=== PATIENT | female | born 1980 | race Caucasian/White ===

== ENCOUNTER 2020-01-09 13:54 | Emergency (ER) | payer SELFPAY ==
--- NOTE | 2020-01-09 14:08 | ER Document Report ---
ED Medical Screen (RME) - General Chief Complaint: Headache Stated Complaint: HEADACHE,ABDOMINAL PAIN Time Seen by Provider: 01/09/20 14:05 Mode of Arrival: Ambulatory Information source: Patient Notes: 39-year-old female presented to ED for complaint of abdominal pain pinkish discharge she is a little bit late on her menstrual cycle. She states she also has headache nausea no vomiting back pain body aches. She states all of her children just got over the flu but she did not have the flu. She states she was treated for the flu because her children were all treated with Tamiflu. Last menstrual cycle was December 09, 2019. She does smoke a third a pack a day rarely drinks no drugs. I have greeted and performed a rapid initial assessment of this patient. A comprehensive ED assessment and evaluation of the patient, analysis of test results and completion of medical decision making process will be conducted by an additional ED providers. Physical Exam - Vital signs Vitals: Temp Pulse Resp BP Pulse Ox 98.1 F 91 18 107/62 100 01/09/20 13:58 01/09/20 13:58 01/09/20 13:58 01/09/20 13:58 01/09/20 13:58 Course - Vital Signs Vital signs: Temp Pulse Resp BP Pulse Ox 98.1 F 91 18 107/62 100 01/09/20 13:58 01/09/20 13:58 01/09/20 13:58 01/09/20 13:58 01/09/20 13:58
[2020-01-09] MEDS ORDERED: KETOROLAC TROMETHAMINE INJ/PF 30 MG/1 ML SDV IV ONE (15:12)
[2020-01-09] MEDS ORDERED: DIPHENHYDRAMINE HCL 50 MG/ML VIAL IV ONE (15:12)
[2020-01-09] MEDS ORDERED: CEFTRIAXONE INJ 250 MG VIAL IM ONE (15:12)
[2020-01-09] MEDS ORDERED: LIDOCAINE 1% INJ-PF (10 MG/ML) 30 ML SDV NEB ONE (15:12)
[2020-01-09] MEDS ORDERED: AZITHROMYCIN 250 MG TABLET PO ONE (15:12)
[2020-01-09] MEDS ORDERED: PROCHLORPERAZINE EDISYLATE INJ 10 MG/2 ML VIAL IV ONE (15:12)
[2020-01-09] MEDS ORDERED: NORMAL SALINE 1000 ML 1,000 ML IV ONE (15:12)
[2020-01-09 15:29] LABS: ABSOLUTE MONOCYTES (AUTO) 0.4 10^3/uL (0.1-1.4); ABSOLUTE NEUT (AUTO) 2.3 10^3/uL (1.7-8.2); BASOPHILS % (AUTO) 0.4 % (0-2); EOSINOPHILS % (AUTO) 0.4 % (0-6); HEMOGLOBIN 13.6 g/dL (12.0-15.5); LYMPHOCYTES % (AUTO) 27.4 % (13-45); MEAN CORPUSCULAR HEMOGLOBIN 30.6 pg (27.0-33.4); MEAN CORPUSCULAR VOLUME 90 fl (80-97); MONOCYTES % (AUTO) 11.9 % (3-13); PLATELET COUNT 159 10^3/uL (150-450); RED BLOOD COUNT 4.45 10^6/uL (3.72-5.28); RED CELL DISTRIBUTION WIDTH 13.7 % (11.5-14.0); SEGMENTED NEUTROPHILS % (AUTO) 59.9 % (42-78); TOTAL CELLS COUNTED % (AUTO) 100 %; WHITE BLOOD COUNT 3.8 10^3/uL (4.0-10.5)
--- NOTE | 2020-01-09 15:30 | ER Document Report ---
ED General - General Chief Complaint: Headache Stated Complaint: HEADACHE,ABDOMINAL PAIN Time Seen by Provider: 01/09/20 14:05 Primary Care Provider: [facility] [Provider Group] - Follow up as needed Mode of Arrival: Ambulatory - [facility] Notes: Patient is a 39-year-old female with history of migraines presents for multiple concerns. The first is that she is having a headache to her posterior occiput area bilaterally for the past week that is been fairly constant. Patient states that she has had some neck pains and movement does make her pain worse. Patient states the pain will occasionally up to the top of her scalp. Patient states that she does have occasional associated light sensitivity, nausea/vomiting. This is not the worst VILLALOBOS of life and did not start as a thunderclap. Patient also endorses right lower back pain which she has had before. Pain does not radiate into her lower extremities. Patient is also complaining of left lower pelvic pain that is been present for the past several days. She did notice some pink discharge this morning. She has not noticed any other vaginal odor. Last menstrual cycle was 1 month ago. Patient states that she is little bit late this time around. She is otherwise urinating normally and having normal bowel movements. Denies any fever, head injury, changes in vision/speech/mentation/hearing, URI, sore throat, chest pain, palpitations, syncope, cough, shortness of breath, wheeze, dyspnea, diarrhea, urinary retention, dysuria, hematuria, loss of control of bowel or bladder, numbness/tingling, saddle anesthesia, muscle paralysis/weakness, or rash. - Related Data Allergies/Adverse Reactions: No Known Allergies Allergy (Verified 01/09/20 15:17) Past Medical History - General Information source: Patient - Social History Smoking Status: Current Every Day Smoker Family History: Reviewed & Not Pertinent Review of Systems - Review of Systems -: Yes All other systems reviewed and negative Physical Exam - Vital signs Vitals: Temp Pulse Resp BP Pulse Ox 98.1 F 91 18 107/62 100 01/09/20 13:58 01/09/20 13:58 01/09/20 13:58 01/09/20 13:58 01/09/20 13:58 - Notes Notes: PHYSICAL EXAMINATION: GENERAL: Well-appearing, well-nourished and in no acute distress. A&Ox4. Answers questions appropriately. HEAD: Atraumatic, normocephalic. + reproducible tenderness b/l occipital nerve bundles. EYES: Pupils equal round and reactive to light, extraocular movements intact, sclera anicteric, conjunctiva are normal. No nystagmus. ENT: Nares patent and without discharge. oropharynx clear without exudates. No tonsilar hypertrophy or erythema. Moist mucous membranes. No sinus tenderness. NECK: Normal range of motion, supple without lymphadenopathy. No rigidity/meningismus. No midline tenderness. + reproducible tenderness to the c-paraspinal mm b/l. LUNGS: Breath sounds clear to auscultation bilaterally and equal. No wheezes rales or rhonchi. HEART: Regular rate and rhythm without murmurs, rubs, gallops. ABDOMEN: Soft, nondistended abdomen. No guarding, no rebound. Normal bowel sounds present. No CVA tenderness bilaterally. + reproducible tenderness Lt lower pelvic to palp. no tenderness at [place]. Eng neg. Female : No inguinal adenopathy. External genitalia without erythema, lesi ons, or masses. Vaginal mucosa pink. Cervix parous, pink, and with scant bloody discharge. Uterus is smooth. No adnexal tenderness. No CMT. Witnessed by LYUBOV Brown. Musculoskeletal: Ext b/l: FROM to passive/active. Strength 5+/5. No deficits noted. No bony tenderness of extremities. Back: FROM to passive/active. Strength 5+/5. No vertebral point tenderness, stepoffs, or deformities. No other bony tenderness, erythema, swelling, or ecchymosis. SLR negative b/l. + mild tenderness to the L-paraspinal mm Rt side. Mild spasming. No SI jt tenderness. No foot drop Extremities: No cyanosis, clubbing, or edema b/l. Peripheral pulses 2+. Capillary refill less than 2 seconds. NEUROLOGICAL: NIH 0. GCS 15. Cranial nerves grossly intact. Normal speech, normal gait. Normal sensory, motor exams. Reflexes 2+ b/l. ANTWAN's negative. Pronator drift negative. Heel/marshall, finger/nose wnl. Romberg neg. PSYCH: Normal mood, normal affect. SKIN: Warm, Dry, normal turgor, no rashes or lesions noted. Course - Re-evaluation Re-evalutation: 01/09/20 Patient is an afebrile, well-hydrated, 39-year-old female who presents to the ED with BV, left pelvic pain unspecified, VILLALOBOS (suspect tension-occipital neuritis), and low back pain (suspect benign). Vitals are acceptable without any significant tachycardia, tachypnea, or hypoxia. PE is otherwise unremarkable. Labs unremarkable. See wet mount results. Chlam/gonorrhea tests are pending. Patient given zithromax/rocephin. Patient is nontoxic-appearing is tolerating p.o. without any difficulties. Transvaginal ultrasound was also unremarkable for any acute pathology. No other labs or imaging warranted at this time based on H&P. VILLALOBOS resolved with meds. Low suspicion/risk for cauda equina, disc herniation causing severe spinal stenosis, spinal abscess, acute intracranial pathology, acute appendicitis, bowel obstruction, acute cholecystitis, acute ch olangitis, perforated diverticulitis, incarcerated hernia, pancreatitis, perforated ulcer, peritonitis, sepsis, pelvic inflammatory disease, ectopic , tubo-ovarian abscess, ovarian torsion, or other systemic emergent condition at this time. Patient is aware that her condition can change from initial presentation and she needs to monitor symptoms closely and seek medical attention if any acute changes. I will send her home with prescription for robaxin, flagyl, motrin. Conservative measures otherwise for symptoms. Recheck with your PCM/OBGYN in 3-5 days. Return to the ED with any worsening/concerning symptoms otherwise as reviewed in discharge. Patient is in agreement. - Vital Signs Vital signs: Temp Pulse Resp BP Pulse Ox 98.1 F 91 18 107/62 100 01/09/20 13:58 01/09/20 13:58 01/09/20 13:58 01/09/20 13:58 01/09/20 13:58 - Laboratory Result Diagrams: 01/09/20 15:02 01/09/20 15:02 Laboratory results interpreted by me: 01/09/20 01/09/20 01/09/20 15:02 15:02 15:49 WBC 3.8 L AST 58 H ALT 62 H Urine Protein 30 H Urine Blood LARGE H Urine Ascorbic Acid 40 H Procedures - Pelvic Exam Pelvic exam Cultures obtained: Yes Wet prep obtained: Yes Bimanual exam performed: Yes - negative Witnessed by: LYUBOV Brown Discharge - Discharge Clinical Impression: Pelvic pain, Bacterial vaginosis Headache Qualifiers: Headache type: tension-type Headache chronicity pattern: acute headache Int ractability: not intractable Qualified Code(s): G44.209 - Tension-type headache, unspecified, not intractable Low back pain Qualifiers: Chronicity: acute Back pain laterality: right Sciatica presence: without sciatica Qualified Code(s): M54.5 - Low back pain Condition: Stable Disposition: HOME, SELF-CARE Instructions: Headache ([facility]), Muscle Relaxers ([facility]), Pelvic Pain ([facility]) Additional Instructions: Maintain fluid intake Proper hygienic technique Keep the skin clean Ice, heat, massage, stretches Tylenol/ibuprofen as needed Check in with the health department this week for further testing if warranted Your chlamydia/gonorrhea tests are pending and you will be notified if positive results; you may call in 1 day for the results as well F/u with your PCM/OBGYN in 3-5 days for a recheck Return to the ED with any development of VILLALOBOS/fever, trouble with vision, eye redness, worsening pain, urethral discharge, urinary retention, blood in the urine, flank pain, abdominal pain, n/v, Chest Pain, shortness of breath, joint pains, trouble breathing, or any other worsening/concerning symptoms as needed otherwise. Prescriptions: Metronidazole [Flagyl] 500 mg PO BID #14 tablet Ibuprofen [Motrin 800 mg Tablet] 800 mg PO Q8H PRN #15 tab PRN Reason: Methocarbamol [Robaxin 750 mg Tablet] 750 mg PO TID PRN #10 tablet PRN Reason: Forms: Smoking Cessation Education Referrals: [facility] [Provider Group] - Follow up as needed
[2020-01-09 15:46] LABS: ALBUMIN 3.7 g/dL (3.5-5.0); ALKALINE PHOSPHATASE 68 U/L (38-126); ANION GAP 5 (5-19); ASPARTATE AMINO TRANSFERASE 58 U/L (14-36); BILIRUBIN,DIRECT 0.2 mg/dL (0.0-0.4); BILIRUBIN,TOTAL 0.3 mg/dL (0.2-1.3); BLOOD UREA NITROGEN 7 mg/dL (7-20); CALCIUM 8.5 mg/dL (8.4-10.2); CARBON DIOXIDE 29 mmol/L (22-30); CHLORIDE 105 mmol/L (98-107); GLUCOSE 90 mg/dL (75-110); POTASSIUM 4.4 mmol/L (3.6-5.0); TOTAL PROTEIN 6.8 g/dL (6.3-8.2)
[2020-01-09 16:28] LABS: APPEARANCE,URINE SLIGHTLY-CLOUDY; BILIRUBIN,URINE NEGATIVE (NEGATIVE); COLOR,URINE YELLOW; GLUCOSE, URINE NEGATIVE (NEGATIVE); KETONES,URINE NEGATIVE (NEGATIVE); PROTEIN,URINE 30 mg/dL (NEGATIVE); URINE SPECIFIC GRAVITY 1.021; UROBILINOGEN,URINE NEGATIVE mg/dL (<2.0)
[2020-01-09 17:10] LABS: BACTERIA (WET MOUNT) 4+ BACTERIA SEEN; EPITHELIALS (WET MOUNT) 3+ EPITHELIALS SEEN; RBCS (WET MOUNT) 4+ RBCS SEEN; T.VAGINALIS (WET MOUNT) NO TRICHOMONAS SEEN; WBCS (WET MOUNT) 3+ WBCS SEEN; YEAST (WET MOUNT) NO YEAST SEEN
--- NOTE | 2020-01-09 17:29 | RADIOLOGY REPORT (SQ) ---
EXAM DESCRIPTION: U/S NON OB PEL TV W/DOPPLER COMPLETED DATE/TIME: 01/09/2020 4:45 pm REASON FOR STUDY: left pelvic pain COMPARISON: None. TECHNIQUE: Dynamic and static grayscale images acquired of the pelvis via transvaginal and transabdo dafne approach and recorded on PACS. Additional selected color Doppler and spectral images recorded. LIMITATIONS: None. FINDINGS: UTERUS: Contour normal. No mass. ENDOMETRIAL STRIPE: No focal or generalized thickening. No masses. CERVIX: No nabothian cysts. RIGHT OVARY AND DOPPLER: Normal size. No worrisome masses. Normal arterial vascular flow without evid ence for torsion. LEFT OVARY AND DOPPLER: Normal size. No worrisome masses. Normal arterial vascular flow without evide nce for torsion. FREE FLUID: None noted. OTHER: No other significant finding. MEASUREMENTS: UTERUS: 8.3 x 6.2 x 4.9 cm ENDOMETRIAL STRIPE: 1.5 cm RIGHT OVARY: 1.9 x 2.2 x 1.4 cm LEFT OVARY: 3.1 x 1.7 x 1.0 cm IMPRESSION: Unremarkable PELVIC ULTRASOUND. TECHNICAL DOCUMENTATION: JOB ID: [id number] [employer]- All Rights Reserved Rev-03/19 Reading location - IP/workstation name: [email or web address]
[2020-01-09 18:01] VITALS: BP 102/49
[2020-01-09 18:33] LABS: CHLAM PCR NOT DETECTED (NOT DETECT)
== END 2020-01-09 18:00 | disposition home or self-care (01) ==
LOC: ER 13:54
DX: N76.0 Acute vaginitis (principal); B96.89 Other specified bacterial agents as the cause of diseases classified elsewhere; G44.209 Tension-type headache, unspecified, not intractable; M54.5 Low back pain; R10.9 Unspecified abdominal pain; R10.2 Pelvic and perineal pain; R11.0 Nausea; F17.200 Nicotine dependence, unspecified, uncomplicated
CPT/HCPCS: 94640; 99284; 96372; 96361; 96374; 96375; 36415; 87210; 84703; 85025; 80053; 81001; 87491; 87591; 76830; 93976; J1200; J3490; J1885; J0780; J7030; J0696